=== PATIENT | female | born 1995 | race Caucasian/White ===

== ENCOUNTER 2019-11-29 13:01 | Inpatient (IN) | payer OTHER ==
[~2019-11-29 13:01] MED LIST: Bupivacaine/Epinephrine 0.25% 30 ML VIAL ONE
[2019-11-29 14:01] VITALS: BMI 34.5
[2019-11-29 14:04] LABS: Amnisure Test RUPTURE DETECTED (No Rupture)
[2019-11-29 14:05] LABS: Amnisure Internal Control QC ACCEPTABLE (ACCEPTABLE)
[2019-11-29] MEDS ORDERED: hydrALAZINE 20 MG/ML VIAL SLOW IVP PRN ×2 (14:32→16:31)
--- NOTE | 2019-11-29 14:58 | PRG ---
DATE OF SERVICE: 11/29/2019 PRIMARY OB: Dai Montano MD CHIEF COMPLAINT: Wetness and loss of mucus plug. HISTORY OF PRESENT ILLNESS: The patient is a 24-year-old, G1, P0 female with an intrauterine at 34 weeks and a day, presenting to Labor and Delivery with a 1-day history of wetness and loss of her mucus plug. The patient reports that since yesterday she has felt continually moist and has required a pad to stay dry. She denies any large amounts of leaking or dripping. She also reports she has noticed a change in odor in the last day or two vaginally. She denies fever, cough, headache, chest pain, shortness of breath, nausea, vomiting, diarrhea, constipation, hip problems, knee problems, muscle weakness, any new rashes, or vaginal bleeding. She reports mucousy discharge. Denies urinary urgency or frequency. PAST MEDICAL HISTORY: Hypothyroidism. PAST SURGICAL HISTORY: Negative. ALLERGIES: NO KNOWN DRUG ALLERGIES. MEDICATIONS: 1. Levothyroxine. 2. vitamins. SOCIAL HISTORY: Denies drug, alcohol, or tobacco use. OB LABS: Unavailable at the time of dictation. REVIEW OF SYSTEMS: Per HPI. PHYSICAL EXAMINATION: VITAL SIGNS: Blood pressure 108/71, heart rate of 86, saturating 97% on room air, and respiratory rate 18. GENERAL: She appears to be in no acute distress. She is alert and oriented, cooperative and pleasant to interact with. HEENT: Head is normocephalic, atraumatic. LUNGS: Clear to auscultation bilaterally. HEART: Has regular rate and rhythm. ABDOMEN: Gravid, soft, nontender. EXTREMITIES: Nontender, nonedematous. PELVIS: Vulva is without masses, lesions, or erythema. Vagina is moist. She has some minimal white discharge along the wall of the vaginal canal and some minimal clear mucousy discharge with the external os. On Valsalva and cough, there is no evidence of leakage of fluid. The vagina is otherwise dry. On digital exam, cervix is closed and head is palpable through the vaginal wall. heart tracing shows fetus with a baseline in the 140s with moderate long- term variability with 15 x 15 accelerations, no decelerations. Tocometer showing some irritability possibly, but no contraction pattern. AmniSure test collected by the nursing staff came back as positive. VP3 was collected and been sent. ASSESSMENT AND PLAN: The patient is a 24-year-old, G1, P0 female with an intrauterine at 34 weeks and a day, presenting with a 1-day history of wetness and "loss of mucus plug" with a positive AmniSure test. There is some concern that maybe she is having a slow leak and has rupture of membranes. However, there is no objective evidence other than that test. On physical exam, there is no convincing evidence by history. She does have this wetness and change in odor that may be associated with bacterial vaginosis. VP3 has been sent for evaluation. In the meantime, an ultrasound has been ordered for evaluation of fluid status and weight. The patient has been asked to remain supine and we will be repeating her speculum exam in a couple of hours. Fetus at this time is a category I tracing. We will await further testing and re-evaluation for assessing disposition. Addendum 11/29/19 16:23 u/s results show normal fluid levels. vp3 is neg/neg/neg. repeat speculum exam is neg for pooling. I dont see any clear evidence supporting the postive results on the amnisure test. At 34wks IOL would be indicated if clear rupture of membranes were present. There is evidence that expectant management is an accepted alternative. Though it is possible this pt has a very small leak triggering the postive result inducing labor solely based in that test in my judgement is not the best course of action. I believe started a course of steroids in the event we get stronger evidence over the next few days is prudent. I have reviewed the case with Dr Montano, her primary OB. She is more comfortable that the patient remain inpatient during this time for close observation. I will admit her to the floor. Dr Montano will be assuming care. Job ID: [id number] [facility] [place] [facility]
--- NOTE | 2019-11-29 15:19 | ULT ---
Obstetric sonogram limited HISTORY: Leaking of fluid. Third trimester gestation. FINDINGS: Single intrauterine gestation in cephalic presentation. Grade 0 placenta is along the left lateral wall. No evidence of previa or abruption. Amniotic fluid index 12.5. Uterine cervix is obscured by the ossified cranium. Moderate distention of the right renal collecting system. Mild distention of the left. Advanced age limits anatomic detail. Measurements are as follows: Biparietal diameter 35 weeks 5 days. Head circumference 35 weeks 0 days. Abdominal circumference 36 weeks 2 days 35 weeks 5 days [place] 90 percentile. Estimated gestational age based on today's sonogram 12/29/2019. IMPRESSION : Fetus is somewhat large for previously reported dates. Estimated gestational age 35 weeks 5 days. Bilateral hydronephrosis, right greater than left. Amniotic fluid index is within normal limits.
[2019-11-29] MEDS ORDERED: Ondansetron PF 4 MG/2 ML Vial IVP PRN (16:31)
--- NOTE | 2019-11-29 16:44 | PDOC.EVN ---
Event Note - Event Note Event Note: fetus vtx
[2019-11-29] MEDS: Betamet Acet/Betamet Na Ph 30 MG/5 ML VIAL IM SCH (17:35)
[2019-11-30 12:01] LABS: Amnisure Test RUPTURE DETECTED (No Rupture)
[2019-11-30 12:02] LABS: Amnisure Internal Control QC ACCEPTABLE (ACCEPTABLE)
--- NOTE | 2019-11-30 13:04 | PDOC.LDPN ---
Labor & Delivery Progress Note - Subjective Subjective: painful contractions (cont to have wetness on vulva and panties, will leak onto shorts as well, no gushing of fluid. Increased contractions and cramps) - Objective Vital signs reviewed and normal: yes General: NAD Uterine fundus: non tender Dilation: 1 Effacement: 50% Station: -1 (SSE: neg pooling valsalve) FHT: category 1 [place] contractions every: irreg 2/20min - Assessment (1) premature rupture of membranes Code(s): O42.919 - PRETRM CATHERINE ROM, UNSP TIME BETW RUPT AND ONST LABR, UNSP TRI Current Visit: Yes Status: Acute Qualifiers: PROM onset of labor timing: onset of labor more than 24 hours following rupture Qualified Code(s): O42.119 - premature rupture of membranes, onset of labor more than 24 hours following rupture, unspecified trimester Plan: other (Repeat amnisure positive, clinical picture consistent with PPROM. Will plan 2nd dose BMZ then transfer to labor this evening for IOL. FHT Cat 1, GBS unknown, for PCN ppx)
--- NOTE | 2019-11-30 15:27 | PDOC.APC ---
Antepartum Consult ZENAIDA CHAVES is a 24 year old female at [34 2/7] gestational weeks. I was asked by Dr Montano to speak with the patient regarding anticipated course for a baby born at 34 weeks. I spoke with the patient I outlined that the timing and mode of delivery is a decision that will be made by the OB service. Once the patient is taken for delivery, the resuscitation team will be present. The initial focus will be on respiratory stabilization and may include minimal assistance, CPAP or intubation with surfactant administration. I discussed that the patient will need to be admitted to the NICU in an isolette due to temperature instability associated with prematurity. We will then obtain IV access (peripheral will be first line, umbilical if unable to obtain peripheral) as babies are at risk for hypoglycemia. We discussed that babies born are at higher risk for feeding intolerance and infection. I discussed that breastmilk is the best nutrition for babies and she is strongly encouraged to pump after delivery. Mother does plan to breastfeed and consented to the use of donor milk if the baby meets criteria for use. I explained that the duration of hospital stay will be determined on the clinical course of the baby. I outlined the milestones that needed to be achieved to ensure safe discharge home. We discussed the need for post-nico renal imaging given the history of hydronephrosis. She had the opportunity to ask questions. Recommendations: 1. Please obtain admission syphilis and hepatitis B serologies (and HIV if 3rd trimester result is not available) 2. Recommend starting GBS prophylaxis for PPROM and GBS unknown 3. Recommend continuing home levothyroxine (patient reports not receiving today) I spent a total of 20 minutes with patient & family with greater than 50% of the time counseling & coordinating care.
[2019-11-30] MEDS: Betamet Acet/Betamet Na Ph 30 MG/5 ML VIAL IM SCH (17:29)
[2019-11-30] MEDS ORDERED: Methylergonovine 0.2 MG/ML VIAL IM PRN (19:40)
[2019-11-30] MEDS ORDERED: Ibuprofen 800 MG TAB PO PRN (19:40)
[2019-11-30] MEDS ORDERED: Lidocaine 1% (PF) 30 ML VIAL SC PRN (19:40)
[2019-11-30] MEDS ORDERED: Misoprostol 200 MCG TAB PR PRN (19:40)
[2019-11-30] MEDS ORDERED: Penicillin G Potassium 5 MILL.UNITS in Sodium Chloride 0.9% 100 ML IVPB SCH (19:40)
[2019-11-30] MEDS ORDERED: hydrALAZINE 20 MG/ML VIAL SLOW IVP PRN (19:40)
[2019-11-30] MEDS ORDERED: HYDROcodone/Acetaminophen 5/325 mg Tablet PO PRN (19:40)
[2019-11-30] MEDS ORDERED: NS / Oxytocin 40 units/1000ml 1,000 ML IV PRN (19:40)
[2019-11-30] MEDS ORDERED: Diphenoxylate HCl/Atropine Tablet PO PRN (19:40)
[2019-11-30] MEDS ORDERED: Butorphanol Tartrate 1 MG/ML VIAL SLOW IVP PRN (19:40)
[2019-11-30] MEDS ORDERED: Promethazine HCl 25 MG/ML VIAL IM PRN (19:40)
[2019-11-30] MEDS ORDERED: Carboprost 250 MCG/ML AMP IM PRN (19:40)
[2019-11-30] MEDS ORDERED: Acetaminophen 500 MG TAB PO PRN (19:40)
[2019-11-30 19:57] LABS: Mean Corpuscular HGB CONC 33.2 g/dL (32.0-36.0); Mean Corpuscular Hemoglobin 26.3 pg (27.0-31.0); Mean Corpuscular Volume 79.2 fL (78.0-98.0); Mean Platelet Volume 9.4 fL (7.4-10.4); Platelet Count 226 thou/uL (130-400); RBC Distribution Width 14.2 % (11.5-14.5); Red Blood Cell (RBC) Count 4.54 mill/uL (4.20-5.40); White Blood Cell (WBC) Count 10.4 thou/uL (4.8-10.8)
[2019-11-30 20:39] LABS: Syphilis Antibody Nonreactive (Nonreactive)
[2019-11-30] MEDS ORDERED: Levothyroxine Sodium 50 MCG TAB PO SCH (21:00)
[2019-12-01 01:27] LABS: HBSAg Index 0.11 S/CO (0-0.99); Hep B Surf Ag Non-Reactive S/CO (NonReactive)
[2019-12-01] MEDS: Lactated Ringer's 1,000 ML IV SCH ×5 (04:30→21:09)
[2019-12-01] MEDS: Misoprostol 100 MCG TAB VAG SCH ×6 (05:39→15:10)
[2019-12-01] MEDS: Levothyroxine Sodium 50 MCG TAB PO SCH (06:46)
[2019-12-01] MEDS: Penicillin G 2.5 MILL.units 2.5 MILL.UNITS in Premix Bag 1 BAG IVPB SCH ×5 (08:31→19:00)
[2019-12-01] MEDS: Ondansetron PF 4 MG/2 ML Vial IVP PRN ×2 (09:25→17:29)
--- NOTE | 2019-12-01 09:33 | PDOC.LDPN ---
Labor & Delivery Progress Note - Subjective Subjective: other (cramping, +LOF) - Objective Vital signs reviewed and normal: yes General: NAD Uterine fundus: non tender Dilation: 1 Effacement: 50% Station: -2 FHT: category 1 [place] contractions every: irregular - Assessment (1) premature rupture of membranes Code(s): O42.919 - PRETRM CATHERINE ROM, UNSP TIME BETW RUPT AND ONST LABR, UNSP TRI Current Visit: Yes Status: Acute Qualifiers: PROM onset of labor timing: onset of labor more than 24 hours following rupture Qualified Code(s): O42.119 - premature rupture of membranes, onset of labor more than 24 hours following rupture, unspecified trimester Plan: continue plan of care (IOL: ripening with cytotec followed by pitocin. GBS ppx with PCN. FHT reassuring.)
[2019-12-01] MEDS ORDERED: Fentanyl 4 mcg/Bup 0.1% Cadd 100 ML ONE ×2 (15:47→23:55)
[2019-12-01] MEDS ORDERED: Promethazine HCl 25 MG/ML VIAL IM PRN (17:43)
[2019-12-01] MEDS ORDERED: Lactated Ringer's 500 ML IV PRN (17:43)
[2019-12-01] MEDS ORDERED: Acetaminophen 325 MG TAB PO PRN (17:43)
[2019-12-01] MEDS ORDERED: Ondansetron PF 4 MG/2 ML Vial IVP PRN (17:43)
[2019-12-01] MEDS ORDERED: Naloxone HCl 0.4 mg/ml Vial IVP PRN ×2 (17:43)
[2019-12-01] MEDS ORDERED: diphenhydrAMINE 50 MG/ML VIAL IVP PRN (17:43)
[2019-12-01] MEDS ORDERED: EPHEDRINE 25 MG/5 ML SYRINGE SLOW IVP PRN (17:43)
[2019-12-01] MEDS ORDERED: Communication Order-Pharmacy FS SCH (17:45)
[2019-12-01] MEDS ORDERED: Fentanyl 4 mcg/Bupivacaine 0.1% Cassette 100 ML EPIDURAL SCH (17:45)
[2019-12-01] MEDS: NS w/ Oxytocin 10 units 500 ML IV SCH (17:59)
--- NOTE | 2019-12-02 00:40 | PDOC.OPDEL ---
OB Operative/Delivery Note Delivery Dr/Surgeon: Miriam Pre-Delivery Diagnosis: active labor Procedure/Post Delivery Dx: spontaneous vaginal delivery Anesthesia: epidural - Additional Findings/Plan Placenta delivered: spontaneous Repaired Obstetrical Laceration: periurethral Estimated blood loss: <100 cc, QBL pending Compilations/Other Findings: Rapid progress with of vigourous male. Delayed cord clamping, then cord blood obtained. Placenta intact Lu. Right periurethral laceration repaired w/ 3-0 chromic after rae replaced. Baby to NICU, doing well. To recover in L&D. Post delivery plan: routine recovery
[2019-12-02] MEDS ORDERED: Bisacodyl 10 MG SUPP PR PRN (00:41)
[2019-12-02] MEDS ORDERED: hydrALAZINE 20 MG/ML VIAL SLOW IVP PRN (00:41)
[2019-12-02] MEDS ORDERED: Acetaminophen/Codeine 30-300mg Tablet PO PRN ×2 (00:41)
[2019-12-02] MEDS ORDERED: Milk Of Magnesia 30 ML UDCUP PO PRN (00:41)
[2019-12-02] MEDS ORDERED: Zolpidem Tartrate 5 MG TAB PO PRN (00:41)
[2019-12-02] MEDS ORDERED: NS / Oxytocin 40 units/1000ml 1,000 ML IV SCH (00:45)
[2019-12-02] MEDS: Misoprostol 100 MCG TAB VAG SCH (05:34)
[2019-12-02] MEDS: NS w/ Oxytocin 10 units 500 ML IV SCH (05:34)
[2019-12-02] MEDS: Penicillin G 2.5 MILL.units 2.5 MILL.UNITS in Premix Bag 1 BAG IVPB SCH (05:34)
[2019-12-02 05:44] LABS: Hemoglobin 11.4 g/dL (12.0-16.0)
[2019-12-02] MEDS ORDERED: Measles/Mumps/Rubella 10 MCG/0.5 ML VIAL SC ONE (09:00)
[2019-12-02] MEDS ORDERED: Adacel (T-DAP) 0.5 ML SYRINGE IM ONE (09:00)
[2019-12-02] MEDS: Ibuprofen 800 MG TAB PO SCH ×3 (09:18→22:23)
[2019-12-02] MEDS: Prenatal Vitamin 1 TAB PO SCH (09:18)
[2019-12-02] MEDS: Docusate Calcium (SURFAK) 240 MG CAP PO SCH ×2 (09:19→22:23)
[2019-12-02] MEDS: Levothyroxine Sodium 50 MCG TAB PO SCH (09:19)
[2019-12-02 11:45] LABS: SARS-CoV-2 MS2 Positive; SARS-CoV-2 N Gene Negative; SARS-CoV-2 S Gene Negative; SARS-CoV-2 by NAA Not Detected (NotDetected); SARS-CoV-2 orf1ab Negative
[2019-12-02 11:46] LABS: SARS-CoV-2 MS2 Positive; SARS-CoV-2 N Gene Negative; SARS-CoV-2 S Gene Negative; SARS-CoV-2 by NAA Not Detected (NotDetected); SARS-CoV-2 orf1ab Negative
[2019-12-02 23:51] VITALS: TEMP 98.2
[2019-12-03 00:55] VITALS: BP 100/62
[2019-12-03] MEDS: Ibuprofen 800 MG TAB PO SCH (06:05)
[2019-12-03] MEDS: Levothyroxine Sodium 50 MCG TAB PO SCH (06:05)
--- NOTE | 2019-12-03 07:01 | PDOC.PP ---
Post Progress Note Post Day #: 1 Subjective: No events overnight. No complaints this morning. Kelly removed last night - urinating normally. PO intake tolerated: yes Flatus: yes Ambulation: yes Vital Signs (12 hours) Temp Pulse Resp BP Pulse Ox 12/03/19 00:20 98.2 F 76 16 100/62 12/02/19 19:57 98.2 F 80 16 92/50 L 96 Weight Weight 80.286 kg - Physical Examination General: NAD Respiratory: non-labored breathing Abdominal: no distention, appropriately TTP Neurological: no gross focal deficits Psychiatric: A&Ox3, normal affect Result Diagrams: 12/02/19 05:24 Additional Labs: Post Labs Blood Type B POSITIVE 11/30/19 19:50 Hep Bs Antigen Non-Reactive S/CO (NonReactive) 11/30/19 19:50 - Assessment/Plan 24yo G1 now P1 PPD#1 following normal spontaneous vaginal delivery. PPROM with delivery. Baby currently doing well in NICU. Vitals WNL. Mother requests to go home as she lives close to hospital. Will DC with precautions and routine 2-6wk pp f.u
[2019-12-03] MEDS: Prenatal Vitamin 1 TAB PO SCH (08:09)
[2019-12-03] MEDS: Docusate Calcium (SURFAK) 240 MG CAP PO SCH (08:09)
--- NOTE | 2019-12-05 05:53 | PQF ---
CLINICAL DOCUMENTATION CLARIFICATION FORM: Dear : Dai Montano Date / Time: 12/05/2019 05:53 Please exercise your independent, professional judgment in responding to the clarification form. Clinical indicators are provided on the bottom of this form for your review Please check appropriate box(es) to clarify if the following diagnosis has been ruled in our ruled out: Bacterial vaginosis [ ] Ruled in diagnosis [ ] Continue to treat [ ] Resolved [ X ] Ruled out diagnosis [ ] Improving [ ] Cannot rule out diagnosis [ ] Other diagnosis [ ] Unable to determine Physician Signature: Date/Time: For continuity of documentation, please document condition throughout progress notes and discharge summary. Thank You. To be completed by CDI/Coding staff for physician review: Present Clinical Indicators - Signs / Symptoms / Labs Results and Location in Medical Record [x] may be associated with bacterial vaginosis HP 11/28 [x] CC: wetness and loss of mucus plug HP 11/28 [x] she has felt continually moist HP 11/28 [x] she has noticed changes in odor HP 11/28 [x] some minimal white discharge HP 11/28 [x] WBC: 11/29=10.4 Labs 11/29 Present Risk Factors Results and Location in Medical Record [x] 34 weeks gestation HP 11/28 [x] 24 years old female HP 11/28 Present Treatments Results and Location in Medical Record [x] IVF JUL 15 [x] Penicillin 5mill units IV JUL 15 CDS/Mgmt Specialist Signature: Dimasrosalee Valentina Concepcion Phone #: ext [phone] Date/Time: 12/05/19 05:53 This is a permanent part of the Medical Record [facility]
== END 2019-12-03 12:30 | disposition home or self-care (01) | DRG 807 ==
LOC: L&D/OP 13:01 → L&D 17:25 → 3SE 20:08 → L&D 12-01 04:13 → 3SE 12-02 03:36
PROVIDERS: ADMIT Student in an Organized Health Care Education/Training Program; ATTEND Student in an Organized Health Care Education/Training Program
PROC: 10E0XZZ Delivery of Products of Conception, External Approach (ICD-10-PCS; principal; 2019-12-02)
PROC: 3E0P7VZ Introduction of Hormone into Female Reproductive, Via Natural or Artificial Opening (ICD-10-PCS; 2019-12-02)
PROC: 3E033VJ Introduction of Other Hormone into Peripheral Vein, Percutaneous Approach (ICD-10-PCS; 2019-12-02)
PROC: 0UQMXZZ Repair Vulva, External Approach (ICD-10-PCS; 2019-12-02)
DX: O42.113 Preterm premature rupture of membranes, onset of labor more than 24 hours following rupture, third trimester (principal); Z37.0 Single live birth; Z3A.34 34 weeks gestation of pregnancy; O99.284 Endocrine, nutritional and metabolic diseases complicating childbirth; E03.9 Hypothyroidism, unspecified; O71.82 Other specified trauma to perineum and vulva; Z20.828 Contact with and (suspected) exposure to other viral communicable diseases; Z79.890 Hormone replacement therapy
CPT/HCPCS: 36415; 51702; 76815; 84112; 85014; 85018; 85027; 86780; 86850; 86900; 86901; 87340; 87480; 87510; 87635; 87660; 99285; J0702; J2405; J2540; J2590; J3490; U0003

== ENCOUNTER 2020-05-02 19:17 | Emergency (ER) | payer OTHER ==
--- NOTE | 2020-05-02 20:05 | RAD ---
EXAM: 4 views of the right knee HISTORY: Knee pain after knee dislocation at work COMPARISON: None FINDINGS: No knee effusion is seen. There is no evidence of acute fracture or dislocation. No signifi cant degenerative changes are seen. Mild prepatellar soft tissue swelling is present. IMPRESSION: No evidence of acute osseous abnormality.
== END 2020-05-02 20:39 | disposition home or self-care (01) ==
LOC: ERS 19:17
DX: M25.561 Pain in right knee (principal); E03.9 Hypothyroidism, unspecified